=== PATIENT | female | born 1995 | race Caucasian/White ===

== ENCOUNTER 2021-01-19 12:20 | Day surgery (SDC) | payer OTHER ==
[2021-01-19] MEDS ORDERED: FERRIC CARBOXYMALTOSE 750 MG in SODIUM CHLORIDE 250 ML IVPB ONE (13:30)
[2021-01-19 17:49] VITALS: BP 126/64; PULSE 68; TEMP 98.6
== END 2021-01-19 14:30 | disposition home or self-care (01) ==
LOC: FINFUSION 12:20 → FM/S 12:29 → FINFUSION 17:39
PROVIDERS: ATTEND Family Medicine
PROC: 3E033GC Introduction of Other Therapeutic Substance into Peripheral Vein, Percutaneous Approach (ICD-10-PCS; principal; 2021-01-19)
DX: D50.9 Iron deficiency anemia, unspecified (principal)
CPT/HCPCS: 84703; 96365; J1439

== ENCOUNTER 2021-01-26 12:08 | Day surgery (SDC) | payer OTHER ==
[2021-01-26] MEDS ORDERED: FERRIC CARBOXYMALTOSE 750 MG in SODIUM CHLORIDE 250 ML IVPB ONE (13:00)
[2021-01-26 14:00] VITALS: BP 100/59; PULSE 78
== END 2021-01-26 14:27 | disposition home or self-care (01) ==
LOC: FINFUSION 12:08 → FM/S 12:10 → FINFUSION 14:27
PROVIDERS: ATTEND Family Medicine
PROC: 3E033GC Introduction of Other Therapeutic Substance into Peripheral Vein, Percutaneous Approach (ICD-10-PCS; principal; 2021-01-26)
DX: D50.9 Iron deficiency anemia, unspecified (principal)
CPT/HCPCS: 84703; 96365; J1439